=== PATIENT | female | born 1995 | race Caucasian/White ===

== ENCOUNTER 2020-03-31 09:46 | Emergency (ER) | payer MEDICAID ==
[2020-03-31 10:38] LABS: APPEARANCE,URINE CLEAR; BILIRUBIN,URINE NEGATIVE (NEGATIVE); GLUCOSE, URINE NEGATIVE (NEGATIVE); KETONES,URINE NEGATIVE (NEGATIVE); PROTEIN,URINE 100 mg/dL (NEGATIVE); URINE SPECIFIC GRAVITY 1.005; UROBILINOGEN,URINE NEGATIVE mg/dL (<2.0)
[2020-03-31 10:39] LABS: COLOR,URINE PINK
[2020-03-31 10:40] LABS: ABSOLUTE BASOPHILS # (AUTO) 0.1 10^3/uL (0.0-0.2); ABSOLUTE EOSINOPHILS # (AUTO) 0.2 10^3/uL (0.0-0.6); ABSOLUTE LYMPHOCYTES (AUTO) 1.8 10^3/uL (0.5-4.7); ABSOLUTE MONOCYTES (AUTO) 0.9 10^3/uL (0.1-1.4); ABSOLUTE NEUT (AUTO) 6.4 10^3/uL (1.7-8.2); BASOPHILS % (AUTO) 0.9 % (0-2); EOSINOPHILS % (AUTO) 1.7 % (0-6); HEMATOCRIT 38.7 % (36.0-47.0); HEMOGLOBIN 13.2 g/dL (12.0-15.5); LYMPHOCYTES % (AUTO) 19.5 % (13-45); MEAN CORPUSCULAR HEMOGLOBIN 28.7 pg (27.0-33.4); MEAN CORPUSCULAR VOLUME 85 fl (80-97); MONOCYTES % (AUTO) 9.5 % (3-13); PLATELET COUNT 315 10^3/uL (150-450); RED BLOOD COUNT 4.59 10^6/uL (3.72-5.28); RED CELL DISTRIBUTION WIDTH 15.2 % (11.5-14.0); SEGMENTED NEUTROPHILS % (AUTO) 68.4 % (42-78); TOTAL CELLS COUNTED % (AUTO) 100 %; WHITE BLOOD COUNT 9.3 10^3/uL (4.0-10.5)
[2020-03-31 10:59] LABS: ANION GAP 7 (5-19); BLOOD UREA NITROGEN 11 mg/dL (7-20); CALCIUM 9.1 mg/dL (8.4-10.2); CARBON DIOXIDE 24 mmol/L (22-30); CHLORIDE 108 mmol/L (98-107); GLUCOSE 99 mg/dL (75-110); POTASSIUM 4.2 mmol/L (3.6-5.0)
--- NOTE | 2020-03-31 11:58 | ER Document Report ---
ED General - General Chief Complaint: Vag Bleeding, +preg <12wks Stated Complaint: VAGINAL BLEEDING Time Seen by Provider: 03/31/20 10:02 Mode of Arrival: Ambulatory Information source: Patient - HPI Notes: Patient complaining of heavy vaginal bleeding x2 days. She states she took a test this morning and it was positive. She states that she delivered a healthy baby approximately 2 months ago. She states that last month she had her first normal. Since the . She has had some right-sided lower abdominal pain as well. This has been intermittent and crampy. Is been mild to moderate. It radiates into her right lower back. She denies any dysuria or pr oblems with urination or bowel movements. No fevers. No vomiting. - Related Data Allergies/Adverse Reactions: amoxicillin Allergy (Verified 03/31/20 11:33) Penicillins Allergy (Verified 03/31/20 11:33) Past Medical History - General Information source: Patient - Social History Smoking Status: Never Smoker Frequency of alcohol use: None Drug Abuse: Marijuana Family History: Reviewed & Not Pertinent Review of Systems - Review of Systems Constitutional: denies: Chills, Fever Cardiovascular: denies: Chest pain, Palpitations Respiratory: denies: Cough, Short of breath -: Yes All other systems reviewed and negative Physical Exam - Vital signs Vitals: Temp Pulse Resp BP Pulse Ox 98.1 F 70 16 121/71 100 03/31/20 09:51 03/31/20 09:51 03/31/20 09:51 03/31/20 09:51 03/31/20 09:51 Interpretation: Normal - General General appearance: Appears well, Alert - HEENT Head: Normocephalic, Atraumatic Eyes: Normal Pupils: PERRL - Respiratory Respiratory status: No respiratory distress Chest status: Nontender Breath sounds: Normal Chest palpation: Normal - Cardiovascular Rhythm: Regular Heart sounds: Normal auscultation Murmur: No - Abdominal Inspection: Normal Distension: No distension Bowel sounds: Normal Tenderness: Nontender Organomegaly: No organomegaly - Back Back: Normal, Nontender - Extremities General upper extremity: Normal inspection, Nontender, Normal color, Normal ROM, Normal temperature General lower extremity: Normal inspection, Nontender, Normal color, Normal ROM, Normal temperature, Normal weight bearing. No: Ban's sign - Neurological Neuro grossly intact: Yes Cognition: Normal Orientation: AAOx4 [place] Coma Scale Eye Opening: Spontaneous Jose Coma Scale Verbal: Oriented Jose Coma Scale Motor: Obeys Commands [place] Coma Scale Total: 15 Speech: Normal Motor strength normal: LUE, RUE, LLE, RLE Sensory: Normal - Psychological Associated symptoms: Normal affect, Normal mood - Skin Skin Temperature: Warm Skin Moisture: Dry Skin Color: Normal Course - Re-evaluation Re-evalutation: 03/31/20 11:56 Patient presents with vaginal bleeding stating that she had a home test that was positive and this was concerning to her. test here is negative. She has no abdominal pain on exam. Her vital signs are stable. She does have some white blood cell in her urine however this was not a clean-catch. She has no urinary tract symptoms therefore I have discussed this with her. I have told her that I am not going to treat her with antibiotics at this time but that if she develops further symptoms of dysuria urgency frequency fevers or suprapubic cramping she needs to be reevaluated. - Vital Signs Vital signs: Temp Pulse Resp BP Pulse Ox 98.1 F 70 16 121/71 100 03/31/20 09:51 03/31/20 09:51 03/31/20 09:51 03/31/20 09:51 03/31/20 09:51 - Laboratory Result Diagrams: 03/31/20 10:29 03/31/20 10:29 Laboratory results interpreted by me: 03/31/20 03/31/20 03/31/20 09:30 10:29 10:29 RDW 15.2 H Chloride 108 H Urine Protein 100 H Urine Blood LARGE H Leukocyte Esterase Rfl MODERATE H Discharge - Discharge Clinical Impression: Metrorrhagia Condition: Stable Disposition: HOME, SELF-CARE Instructions: Vaginal Bleeding ([facility]) Referrals: [facility] [Provider Group] - Follow up as needed
[2020-03-31 12:17] VITALS: BP 110/52
== END 2020-03-31 12:10 | disposition home or self-care (01) ==
LOC: ER 09:46
DX: N92.1 Excessive and frequent menstruation with irregular cycle (principal); R10.30 Lower abdominal pain, unspecified; F12.10 Cannabis abuse, uncomplicated; Z88.0 Allergy status to penicillin
CPT/HCPCS: 36415; 80048; 81001; 84702; 85025; 87086; 99283